=== PATIENT | male | born 1995 | race African-American/Black ===

== ENCOUNTER 2021-11-14 21:27 | Emergency (ER) | payer MEDICAID ==
[~2021-11-14] VITALS: Ht 172.7 cm; Wt 77.0 kg
[2021-11-14 22:45] VITALS: BP 128/81
[2021-11-14] MEDS ORDERED: KETOROLAC 60MG/2ML VIAL IM ONE (22:45)
[2021-11-14] MEDS ORDERED: METHOCARBAMOL 500MG TABLET PO ONE (22:45)
[2021-11-15] MEDS ORDERED: LIDO1ADH5 TP (02:16)
[2021-11-15] MEDS ORDERED: METH-773 MT (02:16)
[2021-11-15] MEDS ORDERED: NAPR-681 MT (02:16)
== END 2021-11-15 03:01 | disposition home or self-care (01) ==
LOC: ER 21:27
DX: S39.012A Strain of muscle, fascia and tendon of lower back, initial encounter (principal); V49.59XA Passenger injured in collision with other motor vehicles in traffic accident, initial encounter; Y93.89 Activity, other specified; Y92.89 Other specified places as the place of occurrence of the external cause; Y99.8 Other external cause status
CPT/HCPCS: 96372; 99283; J1885